=== PATIENT | female | born 1945 | race Caucasian/White ===

== ENCOUNTER → 2017-07-10 | Outpatient (CLI) | payer OTHER ==
[2016-11-17 11:37] VITALS: BP 124/68
--- NOTE | 2017-07-10 12:02 | MG ---
Examination: Bilateral screening mammogram. Clinical history: Routine screening. Technique: Digital CC and MLO views of both breasts were obtained. Computer aided detection analysis was performed and used during the interpretation. Comparison: 11/17/2015. Findings: The breasts are composed of scattered fibroglandular densities. Benign-appearing calcifications and v ascular calcifications are noted in the breasts bilaterally. No suspicious mass, area of architectural distortion or suspicious cluster of microcalcifications is noted. Impression: 1. No mammographic evidence of malignancy. BI-RADS category 2-benign findings. Recommend routine annual screening mammogram. Diagnostic CAD was utilized and reviewed. * 0 (ZERO) - ASSESSMENT INCOMPLETE; ADDITIONAL IMAGING IS NEEDED. * 0C - ASSESSMENT INCOMPLETE, NEEDS ADDITIONAL IMAGING EVALUATION AND/OR PRIOR MAMMOGRAMS FOR COMPARI SON. * 1/1 (ONE) - NEGATIVE. * 2/II (TWO) - BENIGN FINDINGS. * 3/III (THREE) - PROBABLY BENIGN FINDING; SHORT INTERVAL FOLLOW-UP SUGGESTED. * 4/IV (FOUR) - SUSPICIOUS ABNORMALITY; BIOPSY SHOULD BE CONSIDERED. * 5/V - HIGHLY SUSPICIOUS OF MALIGNANCY; BIOPSY SHOULD BE PERFORMED. * 6/ - KNOWN BIOPSY PROVEN MALIGNANCY-APPROPRIATE ACTION SHOULD BE TAKEN. A NEGATIVE X-RAY REPORT SHOULD NOT DELAY BIOPSY IF A DOMINANT OR CLINICALLY SUSPICIOUS MASS IS PRESENT; 4 TO 8 PERCENT OF CANCERS ARE NOT IDENTIFIED BY X-RAY. A NEGATIVE REPORT MAY REINFORCE THE CLINICAL IMPRESSION. ADENOSIS AND DENSE BREASTS MAY OBSCURE AN UNDERLYING NEOPLASM. Reported By:
== END ==
LOC: RAD 08:47
PROVIDERS: ATTEND Nurse Practitioner Family
DX: Z12.31 Encounter for screening mammogram for malignant neoplasm of breast (principal)
CPT/HCPCS: 77067

== ENCOUNTER → 2018-01-08 | Outpatient (CLI) | payer OTHER ==
[2016-11-17 11:37] VITALS: BP 124/68
[2018-01-08 10:00] LABS: CREATININE 0.98 mg/dL (0.55-1.02)
--- NOTE | 2018-01-08 11:48 | MRI ---
STUDY: MRI OF THE BRAIN WITHOUT AND WITH GADOLINIUM HISTORY: Poor short-term memory. Technique: Multiplanar multi-sequence MRI of the brain was obtained using standard departmental mono col. Sagittal and axial T1, axial T2, FLAIR, diffusion (DWI/ADC), GRE, and coronal T2 images through the brain were performed. 17 cc of Omniscan was administered intravenously without reported complication following acquisition of informed written consent. Post gadolinium axial and coronal T1 weighted images were also performed and reviewed. Comparison: Brain MRI from November 15, [address] from November 15, 2016. Findings: Pre gadolinium brain: The sulci, cisterns and ventricles are age appropriate. There are confluent and scattered foci of T2 prolongation in the periventricular and subcortical white matter of both hemisp heres. This is a nonspecific finding which likely represents microangiopathic change in a patient of this age. There is no evidence of acute territorial infarction, hemorrhage, mass, mass effect, or midline shift . There are no abnormal intra-axial or extra-axial fluid collections. There is a probable small heman gioma in the right frontal calvarium. The major intracranial vascular flow voids appear intact. The left vertebral artery is dominant. Post gadolinium brain: Following the uneventful administration of intravenous gadolinium, there is no evidence of abnormal parenchymal or leptomeningeal enhancement. IMPRESSION: 1. No evidence of acute intracranial abnormality. 2. Nonspecific white matter change. Reported By:
== END ==
LOC: RAD 09:30
PROVIDERS: ATTEND Nurse Practitioner Family
DX: R41.3 Other amnesia (principal)
CPT/HCPCS: 36415; 70553; 82565; 84520

== ENCOUNTER → 2018-03-04 | Outpatient (CLI) | payer OTHER ==
[2016-11-17 11:37] VITALS: BP 124/68
--- NOTE | 2018-03-04 10:32 | RAD ---
HISTORY: Neck pain. Headache. No known trauma. Study: Cervical spine with flexion and extension Comparison: None Findings: The lateral view demonstrates normal curvature. 2-3 mm of retrolisthesis of C4 on C5 is noted. Mode rate disc space narrowing is noted at C4/C5, C5/C6 and C6/C7. 2-3 mm of spondylolisthesis of C7 on T 1 is noted. Minimal anterior spurring is noted at a few levels. The prevertebral soft tissues are n ormal. Pre odontoid space is normal. Posterior elements are intact. [id number]-cw-phtygkdo facet arthrop athy and uncovertebral joint arthropathy is noted at C4/C5 through C6/C7. Small amount of carotid ar terial calcification is noted bilaterally. The lateral masses of C1 are symmetric about what is seen of the lateral masses of C2 and the odontoid process. Flexion is mildly limited. There is reduction of the retrolisthesis of C4 on C5 to normal alignment. Extension is moderately limited with resumption of the retrolisthesis of C4 on C5 to 2-3 mm IMPRESSION: 1. Cervical spondylosis as described above. 2. Limitation of flexion extension with minimal instability suspected at C3/C4. 3. No acute bony abnormalities are identified. Reported By:
== END ==
LOC: RAD 09:39
PROVIDERS: ATTEND Psychiatry & Neurology Neurology
DX: R42 Dizziness and giddiness (principal); R51 Headache; G47.09 Other insomnia; E53.8 Deficiency of other specified B group vitamins; M54.2 Cervicalgia; M47.892 Other spondylosis, cervical region
CPT/HCPCS: 72050

== ENCOUNTER 2018-11-26 10:57 | Observation (INO) ==
[2018-11-26] MEDS ORDERED: SOLU-Medrol 40 MG VIAL IVP SCH (13:00)
[2018-11-26 13:06] LABS: BASOPHILS % (AUTO) 0.6 % (0.2-1.0); EOSINOPHILS # (AUTO) 0.1 x10^3/uL (0.0-0.2); EOSINOPHILS % (AUTO) 1.1 % (0.9-2.9); HEMOGLOBIN 15.5 g/dL (12.0-16.0); LYMPHOCYTES # (AUTO) 1.4 X10^3/uL (1.3-2.9); LYMPHOCYTES % (AUTO) 18.7 % (21.0-51.0); MEAN CORPUSCULAR HEMOGLOBIN 32.4 pg (27.0-34.0); MEAN CORPUSCULAR HGB CONC 33.7 g/dL (33.0-35.0); MEAN CORPUSCULAR VOLUME 96.2 fL (80.0-100.0); MEAN PLATELET VOLUME 7.8 fL (7.4-11.0); MONOCYTES # (AUTO) 0.6 x10^3/uL (0.3-0.8); MONOCYTES % (AUTO) 7.7 % (0.0-13.0); NEUTROPHILS # (AUTO) 5.3 x10^3/uL (2.2-4.8); NEUTROPHILS % (AUTO) 71.9 % (42.0-75.0); PLATELET COUNT 351 X10^3/uL (150.0-450.0); RED BLOOD COUNT 4.78 X10^6/uL (3.5-5.4); RED CELL DISTRIBUTION WIDTH 13.7 % (11.6-16.5); WHITE BLOOD COUNT 7.4 X10^3/uL (3.6-10.0)
[2018-11-26 13:19] LABS: ALANINE AMINOTRANSFERASE 37 Units/L (12-78); ALBUMIN 3.5 g/dL (3.4-5.0); ALKALINE PHOSPHATASE 81 Units/L (46-116); ASPARTATE AMINO TRANSFERASE 21 Units/L (15-37); BLOOD UREA NITROGEN 17 mg/dL (7-18); CALCIUM 9.4 mg/dL (8.5-10.1); CARBON DIOXIDE 27.4 mmol/L (21-32); CHLORIDE 103 mmol/L (98-107); CREATININE 0.86 mg/dL (0.55-1.02); SODIUM 141 mmol/L (136-145); TOTAL PROTEIN 7.4 g/dL (6.4-8.2); eGFR NON BLACK RACES > 60 (>60)
--- NOTE | 2018-11-26 13:25 | CT ---
HISTORY: Dizziness, left-sided headache Study: CT HEAD WITHOUT CONTRAST Comparison: Technique: Multiple axial images of the brain were obtained from the skull base to the vertex without administration of IV contrast. Findings: There is no intracranial hemorrhage or extra-axial fluid collection. There is no mass effect, midline shift or cerebral edema. Cortical olivo-white matter differentiation is preserved. There is no sulcal effacement identified. There is no evidence of an acute, large artery territorial infarction. Atheromatous calcifications of the bilateral cavernous ICA segments and both vertebral arteries are observed. Patchy periventricular and subcortical white matter hypoattenuation is most likely attributable to chronic microangiopathic ischemic change. The imaged paranasal sinuses and left mastoid air cells are predominantly clear. The right mastoid air cell complex is under developed and partially opacified dependently, a chronic finding. IMPRESSION: 1. No acute intracranial abnormalities; other chronic findings as detailed above. Reported By:
[2018-11-26] MEDS: LEVAQUIN PREMIX IV 500 MG 500 MG/100 ML BAG IV SCH (13:38)
[2018-11-26] MEDS: ANTIVERT TAB 25 MG PO SCH ×2 (13:39→21:11)
[2018-11-26] MEDS: NS 1000 ML 1,000 ML IV SCH (13:39)
[2018-11-26 13:41] LABS: ERYTHROCYTE SEDIMENTATION RATE 36 MM/HOUR (0-20)
[2018-11-26] MEDS ORDERED: BENTYL CAP 10 MG PO PRN (15:20)
[2018-11-26 16:52] VITALS: BMI 25.2
[2018-11-26] MEDS: PROTONIX TAB 40 MG PO SCH (20:15)
[2018-11-26] MEDS: ZOCOR TAB 40 MG PO SCH (20:15)
[2018-11-26] MEDS: PROzac PO SCH (20:16)
[2018-11-26 21:02] LABS: BILIRUBIN,URINE NEGATIVE (NEGATIVE); BLOOD/HEMOGLOBIN,URINE 4+ (NEGATIVE); GLUCOSE, URINE 2+ (NEGATIVE); KETONES,URINE NEGATIVE (NEGATIVE); LEUKOCYTE ESTERASE ,URINE NEGATIVE (NEGATIVE); NITRITES,URINE NEGATIVE (NEGATIVE); PROTEIN,URINE 1+ (NEGATIVE); UROBILINOGEN,URINE NORMAL (NORMAL)
[2018-11-26 21:10] LABS: APPEARANCE,URINE CLEAR (CLEAR); COLOR,URINE PALE YELLOW (YELLOW)
[2018-11-26] MEDS: SOLU-Medrol 40 MG VIAL IVP SCH (21:11)
[2018-11-26 21:18] LABS: BACTERIA,URINE NEGATIVE /HPF (NEGATIVE); CALCIUM OXALATE CRYSTALS,UR MODERATE /HPF (NEGATIVE); RBC,URINE 20-30 /HPF (NONE SEEN); SQUAMOUS EPITHELIAL CELL,UR RARE /HPF (NEGATIVE)
[2018-11-26 21:19] LABS: MUCUS,URINE FEW /HPF (NEGATIVE)
[2018-11-27] MEDS: NS 1000 ML 1,000 ML IV SCH ×3 (04:13→17:28)
[2018-11-27] MEDS: SOLU-Medrol 40 MG VIAL IVP SCH (05:17)
[2018-11-27] MEDS: ANTIVERT TAB 25 MG PO SCH ×2 (05:17→15:56)
[2018-11-27 05:25] LABS: BASOPHILS % (AUTO) 0.3 % (0.2-1.0); HEMATOCRIT 42.8 % (36.0-47.0); HEMOGLOBIN 14.1 g/dL (12.0-16.0); LYMPHOCYTES # (AUTO) 0.9 X10^3/uL (1.3-2.9); LYMPHOCYTES % (AUTO) 7.9 % (21.0-51.0); MEAN CORPUSCULAR HEMOGLOBIN 32.4 pg (27.0-34.0); MEAN CORPUSCULAR VOLUME 98.2 fL (80.0-100.0); MEAN PLATELET VOLUME 7.9 fL (7.4-11.0); MONOCYTES # (AUTO) 0.1 x10^3/uL (0.3-0.8); NEUTROPHILS # (AUTO) 10.3 x10^3/uL (2.2-4.8); NEUTROPHILS % (AUTO) 90.8 % (42.0-75.0); PLATELET COUNT 337 X10^3/uL (150.0-450.0); RED BLOOD COUNT 4.36 X10^6/uL (3.5-5.4); RED CELL DISTRIBUTION WIDTH 13.7 % (11.6-16.5); WHITE BLOOD COUNT 11.3 X10^3/uL (3.6-10.0)
[2018-11-27 05:33] LABS: ALANINE AMINOTRANSFERASE 13 Units/L (12-78); ALKALINE PHOSPHATASE 77 Units/L (46-116); ASPARTATE AMINO TRANSFERASE < 6 Units/L (15-37); BLOOD UREA NITROGEN 18 mg/dL (7-18); CALCIUM 9.1 mg/dL (8.5-10.1); CARBON DIOXIDE 20.8 mmol/L (21-32); CHLORIDE 106 mmol/L (98-107); COR CA(FOR HYPOALB) 9.9 mg/dL (8.5-10.1); COR NA(FOR HYPERGLY) 141 mmol/L (136-145); CREATININE 0.81 mg/dL (0.55-1.02); SODIUM 140 mmol/L (136-145); TOTAL PROTEIN 6.6 g/dL (6.4-8.2); eGFR NON BLACK RACES > 60 (>60)
[2018-11-27 05:52] LABS: BAND NEUTROPHILS % 4 % (0-10); PLATELET MORPHOLOGY COMMENT NORMAL (NORMAL)
[2018-11-27] MEDS ORDERED: SYNTHROID 88 mcg TAB PO SCH (07:00)
[2018-11-27] MEDS ORDERED: TENORMIN PO SCH (09:00)
[2018-11-27] MEDS: ASPIRIN EC 81 MG PO SCH (09:38)
[2018-11-27] MEDS: LEVAQUIN PREMIX IV 500 MG 500 MG/100 ML BAG IV SCH (09:39)
[2018-11-27] MEDS: COZAAR PO SCH (09:39)
[2018-11-27] MEDS: PLAVIX PO SCH (09:39)
[2018-11-27] MEDS: PROTONIX TAB 40 MG PO SCH ×2 (09:39→20:09)
[2018-11-27] MEDS: CLARITIN PO SCH (09:39)
[2018-11-27] MEDS ORDERED: PHENERGAN INJ 25 MG IV ONE (09:40)
--- NOTE | 2018-11-27 09:55 | RAD ---
HISTORY: Dizziness CCC weakness shortness of breath Study: Two-view chest Comparison: Portable chest on 11/15/2016 Technique: PA and lateral chest Findings: The soft tissues and bony thorax are normal heart size configuration airway vascularity are normal. Is mild right greater than left apical pleural scarring which is stable. The airway is normal there is no hilar or mediastinal adenopathy. IMPRESSION: 1. No acute cardiopulmonary abnormalities. 2. No interval change from 11/15/2016. Reported By:
[2018-11-27] MEDS ORDERED: FLONASE NASAL SPRAY ENOSTRIL ONE (10:12)
[2018-11-27] MEDS ORDERED: LOPRESSOR TAB 25 MG ONE (10:12)
[2018-11-27] MEDS: FLONASE NASAL SPRAY ENOSTRIL SCH (10:24)
[2018-11-27] MEDS: LOPRESSOR TAB 25 MG PO SCH ×2 (10:24→20:10)
--- NOTE | 2018-11-27 13:21 | DR.H&P ---
H&P - History & Physical for Day of: H&P Date: 11/26/18 - Chief Complaint Chief Complaint: HEADACHE, DIZZINESS, NAUSEATED, LEFT CHEST PAIN AND LEFT EAR PAIN - History of Present Illness History of Present Illness: 73 WF DIRECT ADMIT FROM DR BRADY OFFICE WITH CO PERSISTENT BERGER WITH DIZZINESS, LEFT EAR PAIN, PAIN TO LEFT CHEST AND CCC. PT HAS BEEN BEING TREATED FOR UPPER RESPIRATORY INFECTION AND SINUSITIS FOR 3 WEEKS. PT HAD ZPAK AND CEDINIR PO AND 2 ROUNDS OF ROCEPHIN AND DECADRON IM. PT HAS PMH OF HTN, MVP, OA. PT ADMITTED FOR TREATMENT OF ACUTE ILLNESS - Past Medical History Past Medical History: Anxiety, Arthritis, Dyslipidemia, Hypertension, Hypothyroidism - Past Surgical History Surgical History: Other Additional Surgical History: MITRAL VALVE PROLAPSE - Family History Family Medical History: Cancer, VT, Hypertension - Social History Does patient currently use any type of tobacco product: No Have you used tobacco products in the last 12 months: No Type of Tobacco Use: None Does any household member use tobacco: No Alcohol Use: None Drug Use: Prescription Drugs - Medications Home Medications: pencillin Allergy (Uncoded 11/15/16 18:00) CONTINUE taking the following medications fluticasone 1 spray INTRANASAL DAILY 11/26/18 [History] levothyroxine 88 mcg PO DAILY 11/26/18 [History] loratadine 10 mg PO DAILY 11/26/18 [History] losartan 25 mg PO DAILY 11/26/18 [History] ofloxacin 10 drp OTIC (EAR) BID 11/26/18 [History] promethazine-DM 5 ml PO Q6H PRN 11/26/18 [History] - Review of Systems Constitutional: Weakness, Malaise Eyes: Vision Change (WITH DIZZINESS ONLY) ENT: Ear Pain, Nose Discharge Respiratory: Cough, SOB with Excertion Cardiovascular: Chest Pain, Palpitations Gastrointestinal: Nausea, Diarrhea Genitourinary: No Symptoms Reported Musculoskeletal: Shoulder Pain Skin: No Symptoms Reported Neurological: Weakness, Other (DIZZINESS AND HEADACHES) - Physical Exam Vital Signs: Temperature 98.0 F Pulse Rate [Left Brachial] 75 Respiratory Rate 20 Blood Pressure [Left Arm] 124/58 Blood Pressure [Right Arm] 124/68 Blood Pressure 124/68 O2 Sat by Pulse Oximetry 97 Oriented: Normal Eyes: Normal Ear: Normal Nose: Discharge Throat: Exudate, Dry Respiratory: RLL Diminished, LLL Diminished Cardiovascular: Normal. negative: Murmur, Edema : Normal Auscultation: Bowel Sounds: Normal Palpation: Normal Tenderness: Normal Skin: Decreased Turgur Musculoskeletal: Right, Left, Shoulder, Knee Psychiatric: Anxiety Affect: Anxious Speech Pattern: Clear, Appropriate - Assessment/Plan (1) Sinusitis Qualifiers: Sinusitis location: pansinusitis Chronicity: subacute Qualified Code(s): J01.40 - Acute pansinusitis, unspecified Status: Acute Plan: ADMIT, CT HEAD ON ADMISSION INCLUDE SINUS. ADMISSION LABS CBC CMP BLOOD CULTURES. IV ATBX THERAPY. VERIFY AND CONTINUE HOME MEDICATION. BP CONTROL, AM LIPID LEVELS (2) Hypertension Status: Acute (3) Dizziness Status: Acute (4) Intractable headache Status: Acute (5) Hypothyroid Status: Chronic (6) GERD (gastroesophageal reflux disease) Status: Chronic (7) MVP (mitral valve prolapse) Status: Chronic - Allergies Allergies/Adverse Reactions: Allergies Allergy/AdvReac Type Severity Reaction Status Date / Time pencillin Allergy Uncoded 11/15/16 18:00
[2018-11-27 13:42] LABS: CHOL/HDL RATIO 2.7 (0.0-5.0); FREE T4 (FREE THYROXINE) 0.9 ng/dL (0.76-1.46); MAGNESIUM 1.6 mg/dL (1.7-2.9); TSH (3RD GENERATION) 0.311 uIU/mL (0.358-3.74)
[2018-11-27 14:13] LABS: CKMB % 3.4 % (<4); CREATINE KINASE 44 Units/L (26-192); CREATINE KINASE MB 1.5 ng/mL (0-4.0); TROPONIN I < 0.02 ng/mL (0-1.5)
[2018-11-27] MEDS: MAGNESIUM SULFATE 1 GRAM/100 mL PREMIX 1 GM/100 ML BAG IV PRN ×2 (15:55→17:56)
[2018-11-27] MEDS: ZOCOR TAB 40 MG PO SCH (20:09)
[2018-11-27] MEDS: PROzac PO SCH (20:09)
[2018-11-28 05:32] LABS: BASOPHILS % (AUTO) 0.1 % (0.2-1.0); HEMATOCRIT 38.8 % (36.0-47.0); HEMOGLOBIN 12.9 g/dL (12.0-16.0); LYMPHOCYTES # (AUTO) 1.6 X10^3/uL (1.3-2.9); LYMPHOCYTES % (AUTO) 10.6 % (21.0-51.0); MEAN CORPUSCULAR HEMOGLOBIN 32.3 pg (27.0-34.0); MEAN CORPUSCULAR HGB CONC 33.2 g/dL (33.0-35.0); MEAN CORPUSCULAR VOLUME 97.3 fL (80.0-100.0); MEAN PLATELET VOLUME 8.1 fL (7.4-11.0); MONOCYTES % (AUTO) 6.7 % (0.0-13.0); NEUTROPHILS # (AUTO) 12.7 x10^3/uL (2.2-4.8); NEUTROPHILS % (AUTO) 82.6 % (42.0-75.0); PLATELET COUNT 310 X10^3/uL (150.0-450.0); RED BLOOD COUNT 3.99 X10^6/uL (3.5-5.4); RED CELL DISTRIBUTION WIDTH 13.8 % (11.6-16.5); WHITE BLOOD COUNT 15.4 X10^3/uL (3.6-10.0)
[2018-11-28 05:45] LABS: ALANINE AMINOTRANSFERASE 24 Units/L (12-78); ALBUMIN 2.6 g/dL (3.4-5.0); ALKALINE PHOSPHATASE 73 Units/L (46-116); ASPARTATE AMINO TRANSFERASE 14 Units/L (15-37); BLOOD UREA NITROGEN 12 mg/dL (7-18); CALCIUM 8.1 mg/dL (8.5-10.1); CARBON DIOXIDE 24.6 mmol/L (21-32); CHLORIDE 110 mmol/L (98-107); COR CA(FOR HYPOALB) 9.2 mg/dL (8.5-10.1); CREATININE 0.77 mg/dL (0.55-1.02); MAGNESIUM 2.2 mg/dL (1.7-2.9); SODIUM 142 mmol/L (136-145); TOTAL PROTEIN 5.6 g/dL (6.4-8.2); eGFR NON BLACK RACES > 60 (>60)
[2018-11-28] MEDS: NS 1000 ML 1,000 ML IV SCH (06:00)
[2018-11-28] MEDS ORDERED: SYNTHROID 88 mcg TAB PO SCH (07:00)
[2018-11-28] MEDS: ASPIRIN EC 81 MG PO SCH (08:35)
[2018-11-28] MEDS: CLARITIN PO SCH (08:35)
[2018-11-28] MEDS: PROTONIX TAB 40 MG PO SCH (08:35)
[2018-11-28] MEDS: COZAAR PO SCH (08:35)
[2018-11-28] MEDS: LOPRESSOR TAB 25 MG PO SCH (08:35)
[2018-11-28] MEDS: PLAVIX PO SCH (08:36)
[2018-11-28] MEDS: FLONASE NASAL SPRAY ENOSTRIL SCH (08:37)
[2018-11-28] MEDS: LEVAQUIN PREMIX IV 500 MG 500 MG/100 ML BAG IV SCH (08:37)
[2018-11-28] MEDS ORDERED: MVI INJ (ADULT) IV SCH (09:00)
[2018-11-28] MEDS ORDERED: TORADOL 30 MG VIAL IVP ONE (09:27)
[2018-11-28] MEDS: LOMOTIL PO ONE ×2 (10:12→11:13)
[2018-11-28] MEDS ORDERED: LOMOTIL ONE (10:13)
--- NOTE | 2018-11-28 10:57 | RAD ---
HISTORY: Chronic right knee pain, left-sided neck pain, left shoulder pain. No trauma Study: Three-view left shoulder Comparison: No priors Findings: No fracture or dislocation is seen. There is very mild degenerative hypertrophy of the left AC joint. Glenohumeral joint is well maintained. Scapula and the visualized left upper ribs are. IMPRESSION: Negative for acute abnormality. Reported By:
--- NOTE | 2018-11-28 11:07 | RAD ---
HISTORY: Chronic right knee pain Study: 3 views of the cervical spine. Comparison: None Findings: The cervical spine demonstrate normal alignment from the craniocervical junction to the level of T1. Moderate multilevel degenerative disc disease. The vertebral body heights are normal. No prevertebral soft tissue swelling can be identified. The odontoid appears intact. The lateral masses of C1 align with the body of C2. IMPRESSION: 1. Multilevel degenerative disc disease. No acute abnormalities. Reported By:
--- NOTE | 2018-11-28 12:34 | RAD ---
HISTORY: Chronic right knee pain Study: 3 views of the right knee Comparison: None Findings: No acute fractures or dislocations. Joint spaces are maintained. No knee joint effusion. Soft tissues are unremarkable. IMPRESSION: 1. No significant abnormality of the right knee. Reported By:
[2018-11-28 16:56] VITALS: BP 132/64
--- NOTE | 2018-11-28 17:12 | MRI ---
HISTORY: Cervical spine tenderness, degenerative disc disease, radiculopathy Study: MRI cervical spine without contrast Comparison: Same day radiograph Technique: Multiplanar multisequence MRI of the cervical spine was obtained utilizing standard departmental protocol. Findings: Alignment of the cervical spine is normal. No abnormal cord or marrow signal is identified. Vertebral body heights are preserved without evidence of fracture. The prevertebral and paraspinal soft tissues are unremarkable. Multilevel spondylosis and disc desiccation is present. C2 -- C3: No significant stenosis. C3 -- C4: There is disc height loss and desiccation with mild bilateral uncovertebral spurring and facet arthropathy without significant stenosis. C4 -- C5: There is disc height loss and desiccation with uncovertebral spurring asymmetric to the right resulting moderate right foraminal narrowing. There is mild effacement of the ventral thecal sac due to a broad-based disc osteophyte complex without cord compression. C5 -- C6: There is disc height loss and desiccation with bilateral uncovertebral spurring resulting in mild bilateral foraminal narrowing. C6 -- C7: There is disc height loss and desiccation bilateral uncovertebral spurring a broad-based disc osteophyte complex. There is effacement of the ventral thecal sac without cord compression. There is mild bilateral foraminal narrowing. C7 -- T1: No significant stenosis identified. IMPRESSION: 1. Overall [id number] multilevel discogenic degenerative changes as detailed above. 2. No acute osseous abnormality of the cervical spine. Reported By:
--- NOTE | 2018-11-28 17:21 | MRI ---
HISTORY: Right knee osteoarthritis, history of injury, limping gait Study: MRI right knee without contrast Comparison: Radiograph same day Technique: Multiplanar multisequence MRI of the knee was obtained utilizing standard departmental protocol. Findings: There is an oblique radial tear at the posterior horn of the medial meniscus. There is degenerative fraying of the meniscal free edge also noted medially. No displaced meniscal flap is seen. The lateral meniscus appears normal. The anterior and posterior cruciate ligaments appear intact. The medial and lateral collateral ligament complexes are likewise intact. Patellofemoral mechanism appears normal. Mild subchondral cystic changes are seen at the inferior pole of the patella at the lateral facet. There is mild tricompartmental chondromalacia without full-thickness tear or fissuring. No significant joint or intra-articular body identified. The posterolateral corner structures are intact. No Espinoza cyst. No fracture or articular surface erosions are seen. IMPRESSION: 1. Oblique, radial tear of the posterior horn of the medial meniscus with degenerative fraying of the free edge of the medial meniscus. 2. Mild chondromalacia. 3. Mild subchondral cystic changes at the inferior pole of patella at the lateral facet without articular erosions. 4. No joint effusion or acute osseous abnormality. Reported By:
[2018-11-28] MEDS ORDERED: MOBIC TAB 15 MG PO SCH (21:00)
== END 2018-11-28 18:06 | disposition home or self-care (01) ==
LOC: MED/SURG
PROVIDERS: ADMIT Internal Medicine; ATTEND Internal Medicine
DX: S83.241A Other tear of medial meniscus, current injury, right knee, initial encounter; J01.40 Acute pansinusitis, unspecified; E03.8 Other specified hypothyroidism; I10 Essential (primary) hypertension; R07.89 Other chest pain; R42 Dizziness and giddiness; H92.02 Otalgia, left ear; R51 Headache; M19.012 Primary osteoarthritis, left shoulder; K21.9 Gastro-esophageal reflux disease without esophagitis; X58.XXXA Exposure to other specified factors, initial encounter; M94.261 Chondromalacia, right knee
CPT/HCPCS: 36415; 70450; 71020; 71046; 72040; 72141; 73030; 73560; 73721; 80053; 80061; 81001; 82550; 82553; 83735; 84439; 84443; 84481; 84484; 85025; 85652; 86140; 87040; 87045; 87427; 87449; 87899; 93005; A4222; G0378; J1885; J1956; J2920; J3475; J7030